=== PATIENT | female | born 1990 | race Two or more races ===

== ENCOUNTER 2023-02-09 10:35 | Outpatient (CLI) | payer OTHER ==
[~2023-02-09 10:35] MED LIST: PROVENTIL2.5 MG/3 M IH; TUSIORGANIDIN DM; [UNRECOGNIZED DRUG - OTHER] PO
== END 2023-02-09 13:00 | disposition home or self-care (01) ==
LOC: PRENATAL 10:35
PROVIDERS: ATTEND Obstetrics & Gynecology Maternal & Fetal Medicine
DX: O35.3XX0 Maternal care for (suspected) damage to fetus from viral disease in mother, not applicable or unspecified (principal); O09.219 Supervision of pregnancy with history of pre-term labor, unspecified trimester; Z3A.20 20 weeks gestation of pregnancy

== ENCOUNTER 2023-05-10 08:38 | Outpatient (CLI) | payer OTHER | END 2023-05-10 08:39 | disposition home or self-care (01) | LOC: PRENATAL 08:38 | PROVIDERS: ATTEND Obstetrics & Gynecology Maternal & Fetal Medicine | DX: O26.849 Uterine size-date discrepancy, unspecified trimester (principal); O36.8199 Decreased fetal movements, unspecified trimester, other fetus; O09.219 Supervision of pregnancy with history of pre-term labor, unspecified trimester; O24.419 Gestational diabetes mellitus in pregnancy, unspecified control; Z3A.32 32 weeks gestation of pregnancy ==

== ENCOUNTER 2023-06-13 23:01 | Inpatient (IN) | payer OTHER ==
[~2023-06-13] VITALS: Ht 157.5 cm; Wt 77.1 kg
[2023-06-14 01:41] LABS: PH,URINE 6.5 (5.0-8.0); URINE APPEARANCE Clear; URINE BILIRRUBIN Negative (NEGATIVE); URINE BLOOD Negative; URINE COLOR Yellow; URINE GLUCOSE Negative (NEGATIVE); URINE LEUKOCYTE Small; URINE NITRATE Negative; URINE PROTEIN Negative (NEGATIVE); URINE UROBILINOGEN 0.2 E.U./dl
[2023-06-14 01:46] LABS: URINE BACTERIA 2144.4 uL (0.0-1933); URINE EPITHELIAL CELLS 35.5 uL (0.0-38.8); URINE RBC 4.4 uL (0.0-20.8); URINE WBC 101.5 uL (0.0-23.2)
[2023-06-14 01:59] LABS: INR < 0.93; PARTIAL THROMBOPLASTIN TIME 27.5 SECONDS (22.0-34.0); PROTHROMBIN TIME 9.8 SECONDS (9.0-11.5)
[2023-06-14 02:00] LABS: HEMOGLOBIN 10.8 g/dL (12.0-15.00); MEAN CELL VOLUME 74.5 fL (80.00-100.00); MEAN CORPUSCULAR HEMOGLOBIN 24.3 pg (27.00-32.0); MEAN CORPUSCULAR HGB CONC 32.6 g/dl (32.0-36.0); PLATELET COUNT 310 K/uL (150-450); RED BLOOD COUNT 4.43 M/uL (4.00-6.00)
[2023-06-14 02:01] LABS: RED CELL DISTRIBUTION WIDTH 17.1 % (11.5-14.5)
[2023-06-14 02:06] LABS: ALBUMIN 2.6 gm/dL (3.4-5.0); BILIRUBIN TOTAL 0.46 mg/dL (0.3-1.2); CALCIUM 9.4 mg/dL (8.5-10.1); CREATININE SERUM 0.78 mg/dL (0.55-1.02); GFR 85.05; GLOBULINA 3.8 G/DL (2.4-3.5); POTASSIUM 3.95 mEq/L (3.5-5.1); TOTAL PROTEIN 6.4 gm/dL (6.4-8.2)
[2023-06-14] MEDS ORDERED: PRENATAL + DHA1 EAC1 PO (12:48)
[2023-06-15 11:17] LABS: ABG PH 7.367 (7.35-7.45); ABG PO2 29.5 mmHg (80-100); ABG pCO2 35.3 mmHg (35-45); BASE EXCESS -4.7 mmol/l; BICARBONATE 19.8 mmol/l (23-25); SaO2 52.2 %; Tco2 20.9 mmol/l
[2023-06-15 11:18] LABS: o2 21 %
[2023-06-15 15:43] LABS: HEMATOCRIT 32.8 % (36.0-45.00); HEMOGLOBIN 10.5 g/dL (12.0-15.00); MEAN CELL VOLUME 73.4 fL (80.00-100.00); MEAN CORPUSCULAR HEMOGLOBIN 23.4 pg (27.00-32.0); MEAN CORPUSCULAR HGB CONC 31.9 g/dl (32.0-36.0); PLATELET COUNT 274 K/uL (150-450); RED BLOOD COUNT 4.46 M/uL (4.00-6.00); RED CELL DISTRIBUTION WIDTH 17.2 % (11.5-14.5)
== END 2023-06-17 14:50 | disposition home or self-care (01) | DRG 807 ==
LOC: OBS/DEL 23:01 → LDR 23:14 → OBS/DEL 06-14 08:59 → LDR 06-15 07:09 → OB/GYN 06-15 12:25
PROVIDERS: ADMIT Student in an Organized Health Care Education/Training Program; ATTEND Student in an Organized Health Care Education/Training Program
PROC: 4A1HXCZ Monitoring of Products of Conception, Cardiac Rate, External Approach (ICD-10-PCS; 2023-06-14)
PROC: 10E0XZZ Delivery of Products of Conception, External Approach (ICD-10-PCS; principal; 2023-06-15)
DX: O80 Encounter for full-term uncomplicated delivery (principal); Z37.0 Single live birth; Z3A.37 37 weeks gestation of pregnancy; Z20.822 Contact with and (suspected) exposure to COVID-19

== ENCOUNTER 2023-08-31 06:31 | Day surgery (SDC) | payer OTHER ==
[2023-08-25 11:03] LABS: HEMATOCRIT 40.9 % (36.0-45.00); HEMOGLOBIN 13.6 g/dL (12.0-15.00); MEAN CELL VOLUME 78.8 fL (80.00-100.00); MEAN CORPUSCULAR HEMOGLOBIN 26.2 pg (27.00-32.0); MEAN CORPUSCULAR HGB CONC 33.3 g/dl (32.0-36.0); PLATELET COUNT 352 K/uL (150-450); RED BLOOD COUNT 5.18 M/uL (4.00-6.00)
[2023-08-25 11:07] LABS: RED CELL DISTRIBUTION WIDTH 21.6 % (11.5-14.5)
[2023-08-25 11:18] LABS: URINE APPEARANCE Clear; URINE BILIRRUBIN Negative (NEGATIVE); URINE BLOOD Negative; URINE COLOR Yellow; URINE GLUCOSE Negative (NEGATIVE); URINE LEUKOCYTE Negative; URINE NITRATE Negative; URINE PROTEIN Negative (NEGATIVE); URINE UROBILINOGEN 0.2 E.U./dl
[2023-08-25 11:22] LABS: URINE BACTERIA 323.7 uL (0.0-1933); URINE EPITHELIAL CELLS 7.1 uL (0.0-38.8); URINE RBC 17.3 uL (0.0-20.8)
[2023-08-25 11:29] LABS: BILIRUBIN TOTAL 0.71 mg/dL (0.3-1.2); CALCIUM 10.1 mg/dL (8.5-10.1); CREATININE SERUM 0.88 mg/dL (0.55-1.02); GLOBULINA 3.7 G/DL (2.4-3.5); POTASSIUM 4.41 mEq/L (3.5-5.1); TOTAL PROTEIN 7.7 gm/dL (6.4-8.2)
[2023-08-25 11:44] LABS: INR 0.98; PARTIAL THROMBOPLASTIN TIME 31.6 SECONDS (22.0-34.0); PROTHROMBIN TIME 10.3 SECONDS (9.0-11.5)
[2023-08-25 17:50] LABS: TSH 1.63 uIU/mL (0.358-3.74)
[~2023-08-31 06:31] MED LIST changes: +PRENATAL + DHA1 EAC1 PO
[2023-08-31] MEDS ORDERED: IBU800 MG PO (20:15)
[2023-08-31] MEDS ORDERED: COLACE100 MG PO (20:15)
[2023-08-31] MEDS ORDERED: PERCOCET 5-3251 EACH PO (20:15)
[2023-08-31] MEDS ORDERED: SIMETHICONE80 MG PO (20:15)
== END 2023-08-31 21:30 | disposition home or self-care (01) ==
LOC: CIR.AMB 06:31
PROVIDERS: ATTEND Student in an Organized Health Care Education/Training Program
DX: Z30.2 Encounter for sterilization (principal); Z88.8 Allergy status to other drugs, medicaments and biological substances; Z20.822 Contact with and (suspected) exposure to COVID-19